=== PATIENT | female | born 1965 | race African-American/Black ===

== ENCOUNTER 2016-05-20 12:55 | Emergency (ER) | payer SELFPAY ==
[~2016-05-20] VITALS: Ht 170.2 cm; Wt 77.0 kg
[~2016-05-20 12:55] MED LIST: B-COTAB41 PO; CLON.2 PO; GABA800T PO; HCTZ25 PO; KCL10 PO; MAGN400C2 PO; MEDR4PAK3 PO; METH5SOL3 PO; OXYC15TA PO; PRIL40CA PO; PROZ40CA PO; TIZA4 PO; VITA200017 PO; VITA500C PO; [UNRECOGNIZED DRUG - CODE]
[2016-05-20 12:56] VITALS: BP 189/99; PULSE 74; RESP 20; TEMP 98.1; O2SAT 98
--- NOTE | 2016-05-20 13:03 | PD ---
Physical Exam Date Seen by Provider: May 20, 2016 Time Seen by Provider: 13:00 Narrative 50 YOBF WITH C/O CP . H/O CHEST INJURY 2DAYS AGO. POS PAIN WITH MOVEMENT AND DEEP BREATH. PAIN 11/26. H/O HTN. NO DM. NO BLOOD THINNERS VS MILD INCREASE BP HR NL. AWAITING BED PLACEMENT. Data Data Last Documented VS Vital Signs Date Time Temp Pulse Resp B/P Pulse Ox O2 Delivery O2 Flow Rate FiO2 05/20/16 12:56 98.1 74 20 189/99 98 Room Air [facility] Medical Record Reviewed: Yes Supervised Visit with JAYDEN: Yes José Luis Duarte May 20, 2016 13:03
--- NOTE | 2016-05-21 10:42 | EKG ---
Date Performed: 05/20/2016 Time Performed: 13:09:46 PTAGE: 50 years EKG: Sinus rhythm NORMAL ECG Compared to prior tracing no significant change PREVIOUS TRACING : 03/21/2010 22.05 DOCTOR: Farhana Callaway Interpretating Date/Time 05/21/2016 10:35:33
== END 2016-05-20 16:18 | disposition left against medical advice (07) ==
LOC: NED 12:55
DX: S29.9XXA Unspecified injury of thorax, initial encounter (principal); Z53.21 Procedure and treatment not carried out due to patient leaving prior to being seen by health care provider; X58.XXXA Exposure to other specified factors, initial encounter; I10 Essential (primary) hypertension
CPT/HCPCS: 93005

== ENCOUNTER 2016-10-03 20:10 | Observation (INO) | payer OTHER ==
[~2016-10-03] VITALS: Ht 170.2 cm; Wt 77.5 kg
[2016-10-03 20:14] VITALS: BP 203/111; PULSE 79; RESP 16; TEMP 98.2; O2SAT 99
--- NOTE | 2016-10-03 20:31 | PD ---
Physical Exam Date Seen by Provider: Oct 03, 2016 Time Seen by Provider: 20:28 Narrative 50 YOBF C/O CP SINCE FRIDAY TOOK ASA . NOW R FOOT WELL FRIDAY.H/O HTN ON MEDS. 11/26. OXY 30 3-4 TIMES A DAY LOGAN METHADONE 10 BID. H/O BACK PAIN VS REVIEWED WAITING FOR BED PLACEMENT Data Data Last Documented VS Vital Signs Date Time Temp Pulse Resp B/P Pulse Ox O2 Delivery O2 Flow Rate FiO2 10/03/16 20:14 98.2 79 16 203/111 99 Room Air MDM Supervised Visit with JAYDEN: José Luis Morgan Oct 03, 2016 20:31
--- NOTE | 2016-10-03 21:58 | PD ---
HPI Chief Complaint: Chest Pain Time Seen by Provider: 21:55 Travel History International Travel<30 days: No Contact w/Intl Traveler<30days: No Traveled to known affect area: No History of Present Illness HPI CP, SUBSTERNAL , PRESSURE, NONRAD, 08/26, INTERMITTENT, SINCE 10PM PFSH Past Medical History Arthritis: Yes (OSTEO AND RHEUMATOID) Asthma: Yes Blood Disorders: No Anxiety: Yes Heart Rhythm Problems: No Cancer: No Cardiac Catheterization: No Cardiovascular Problems: Yes (HTN, ) High Cholesterol: No Chemotherapy: No Congestive Heart Failure: No Diabetes: No Diminished Hearing: No Diverticulitis: Yes Endocrine: No Fibromyalgia: Yes Gastrointestinal Disorders: Yes (DIVERTICULITIS) Genitourinary: No Headaches: Yes Hypertension: Yes Immune Disorder: No Musculoskeletal: Yes (BULDGING DISK CHRONIC BACK PAIN) Neurologic: Yes Psychiatric: No Respiratory: Yes Immunizations Current: No Myocardial Infarction: No Radiation Therapy: No ?: Not Menopausal: Yes : 7 Para: 5 Miscarriage: 2 : 1 Ectopic : Yes Ovarian Cysts: Yes Tubal Ligation: Yes Past Surgical History Abdominal Surgery: Yes (FOR DIVERTICULITIS) Coronary Artery Bypass Graft: No Gynecologic Surgery: Yes Hysterectomy: Yes Other Surgery: Yes Family History Family Hypercholesterolemia: Yes Social History Alcohol Use: No Tobacco Use: Yes ( 2CIGS A DAY) Substance Use: Yes (MARIJUANA OCCASIONALLY) Allergies-Medications (Allergen,Severity, Reaction): Coded Allergies: acetaminophen (Unverified Allergy, Mild, 10/01/16) penicillin G (Unverified Allergy, Mild, swell,rash, 10/01/16) propoxyphene (Unverified Allergy, Mild, 10/01/16) strawberry (Unverified Allergy, Mild, swell,rash, 10/01/16) Reported Meds & Prescriptions Reported Meds & Active Scripts Active Reported Norvasc (Amlodipine Besylate) 10 Mg Tab 10 Mg PO DAILY Zanaflex (Tizanidine HCl) 4 Mg Cap 4 Mg PO TID Klor-Con 10 (Potassium Chloride) 10 Meq Tab 20 Meq PO DAILY Oxycodone (Oxycodone HCl) 15 Mg Tab 15 Mg PO Q4H PRN Omeprazole 40 Mg Cap 40 Mg PO DAILY Methadone (Methadone HCl) 10 Mg Tab 10 Mg PO DAILY Magnesium (Magnesium Oxide) 400 Mg Tablet 800 Mg PO TWICE WEEKLY [hydrodiuril] 25 Mg PO Gabapentin 800 Mg Tab 800 Mg PO TID Prozac (Fluoxetine HCl) 40 Mg Cap 40 Mg PO DAILY Clonidine (Clonidine HCl) 0.2 Mg Tab 0.2 Mg PO BID B Complex (B-Complex Vitamins) 1 Cap 1 Cap PO DAILY Review of Systems Except as stated in HPI: all other systems reviewed are Neg Cardiovascular: Positive: Chest Pain or Discomfort Physical Exam Narrative GENERAL: SKIN: Warm and dry. HEAD: Atraumatic. Normocephalic. EYES: Pupils equal and round. No scleral icterus. No injection or drainage. ENT: No nasal bleeding or discharge. Mucous membranes pink and moist. NECK: Trachea midline. No JVD. CARDIOVASCULAR: Regular rate and rhythm. RESPIRATORY: No accessory muscle use. Clear to auscultation. Breath sounds equal bilaterally. GASTROINTESTINAL: Abdomen soft, non-tender, nondistended. Hepatic and splenic margins not palpable. MUSCULOSKELETAL: Extremities without clubbing, cyanosis, or edema. No obvious deformities. NEUROLOGICAL: Awake and alert. No obvious cranial nerve deficits. Motor grossly within normal limits. Five out of 5 muscle strength in the arms and legs. Normal speech. PSYCHIATRIC: Appropriate mood and affect; insight and judgment normal. Data Data Last Documented VS Vital Signs Date Time Temp Pulse Resp B/P Pulse Ox O2 Delivery O2 Flow Rate FiO2 10/03/16 22:30 72 14 179/98 99 Room Air 10/03/16 20:14 98.2 Orders Electrocardiogram (10/03/16 20:31) Electrocardiogram (10/03/16 21:55) B-Type Natriuretic Peptide (10/03/16 21:55) Ckmb (Isoenzyme) Profile (10/03/16 21:55) Complete Blood Count With Diff (10/03/16 21:55) Comprehensive Metabolic Panel (10/03/16 21:55) Prothrombin Time / Inr (Pt) (10/03/16 21:55) Act Partial Throm Time (Ptt) (10/03/16 21:55) Troponin I (10/03/16 21:55) Lipase (10/03/16 21:55) Chest, Single Ap (10/03/16 21:55) Ecg Monitoring (10/03/16 21:55) Bilateral Bp Monitoring (10/03/16 21:55) Iv Access Insert/Monitor (10/03/16 21:55) Oximetry (10/03/16 21:55) Oxygen Administration (10/03/16 21:55) Aspirin Chew (Aspirin Chew) (10/03/16 22:00) Morphine Inj (Morphine Inj) (10/03/16 22:00) Nitroglycerin 2% Oint (Nitroglycerin 2% (10/03/16 22:00) Hydralazine Inj (Apresoline Inj) (10/03/16 22:15) CKMB (10/03/16 22:05) CKMB% (10/03/16 22:05) Admit Order (Ed Use Only) (10/03/16 23:16) Labs Laboratory Tests Test 10/03/16 22:05 White Blood Count 8.3 TH/MM3 Red Blood Count 4.20 MIL/MM3 Hemoglobin 13.1 GM/DL Hematocrit 38.7 % Mean Corpuscular Volume 92.1 FL Mean Corpuscular Hemoglobin 31.1 PG Mean Corpuscular Hemoglobin 33.8 % Concent Red Cell Distribution Width 14.1 % Platelet Count 337 TH/MM3 Mean Platelet Volume 8.6 FL Neutrophils (%) (Auto) 42.9 % Lymphocytes (%) (Auto) 50.8 % Monocytes (%) (Auto) 5.6 % Eosinophils (%) (Auto) 0.6 % Basophils (%) (Auto) 0.1 % Neutrophils # (Auto) 3.6 TH/MM3 Lymphocytes # (Auto) 4.2 TH/MM3 Monocytes # (Auto) 0.5 TH/MM3 Eosinophils # (Auto) 0.1 TH/MM3 Basophils # (Auto) 0.0 TH/MM3 CBC Comment DIFF FINAL Differential Comment Prothrombin Time 10.4 SEC Prothromb Time International 0.9 RATIO Ratio Activated Partial 26.8 SEC Thromboplast Time Sodium Level 141 MEQ/L Potassium Level 3.7 MEQ/L Chloride Level 105 MEQ/L Carbon Dioxide Level 27.4 MEQ/L Anion Gap 9 MEQ/L Blood Urea Nitrogen 11 MG/DL Creatinine 0.68 MG/DL Estimat Glomerular Filtration 111 ML/MIN Rate Random Glucose 92 MG/DL Calcium Level 9.2 MG/DL Total Bilirubin 0.2 MG/DL Aspartate Amino Transf 18 U/L (AST/SGOT) Alanine Aminotransferase 21 U/L (ALT/SGPT) Alkaline Phosphatase 71 U/L Total Creatine Kinase 111 U/L Creatine Kinase MB 1.1 NG/ML Troponin I LESS THAN 0.02 NG/ML B-Type Natriuretic Peptide 14 PG/ML Total Protein 8.2 GM/DL Albumin 4.1 GM/DL Lipase 98 U/L MDM Medical Decision Making Medical Screen Exam Complete: Yes Emergency Medical Condition: Yes Medical Record Reviewed: Yes Interpretation(s) NSR 63, NL INTERVALS, NO STEMI PATTERN Differential Diagnosis ID V NONSTEMI V PNA V PTX V ELECTROLYTE ABNL V ANEMIA V DEHYDRATION Narrative Course DURING EVALUATION PATIENT DID NOT HAVE ANEMIA, DEHYDRATION NOR ANY MAJOR ELECTROLYTE ABNL. EKG DID NOT REVEAL STEMI, AND CXR DID NOT SHOW ANY PNA/PTX/ EFFUSION Diagnosis Primary Impression: CP R/O ID Admitting Information Admitting Physician Requests: Chace Howell MD Oct 03, 2016 21:58
[2016-10-03] MEDS ORDERED: MORPHINE SULFATE 4 MG/ML INJ IV PUSH ONE (22:00)
[2016-10-03] MEDS ORDERED: ASPIRIN 81 MG CHEW TAB PO ONE (22:00)
[2016-10-03] MEDS ORDERED: NITROGLYCERIN 2% OINT 1 GM PACKET TOP ONE (22:00)
[2016-10-03] MEDS ORDERED: hydrALAZINE HCL 20 MG/ML VIAL IV PUSH ONE (22:15)
[2016-10-03 22:30] VITALS: BP 179/98; PULSE 72; RESP 14; O2SAT 99
[2016-10-03 22:44] LABS: AUTOMATED NEUTROPHIL # 3.6 TH/MM3 (1.8-7.7); BASOPHIL % 0.1 % (0.0-2.0); EOSINOPHIL # 0.1 TH/MM3 (0-0.4); EOSINOPHIL % 0.6 % (0.0-4.0); HEMATOCRIT 38.7 % (35.0-46.0); HEMO FLAGS DIFF FINAL; LYMPH % 50.8 % (9.0-44.0); LYMPHOCYTE # 4.2 TH/MM3 (1.0-4.8); MEAN CELL VOLUME 92.1 FL (80.0-100.0); MEAN CORPUSCULAR HEMOGLOBIN 31.1 PG (27.0-34.0); MEAN CORPUSCULAR HGB CONC 33.8 % (32.0-36.0); MONO % 5.6 % (0.0-8.0); NEUT % 42.9 % (16.0-70.0); PLATELET COUNT 337 TH/MM3 (150-450); RED CELL DISTRIBUTION WIDTH 14.1 % (11.6-17.2); WHITE BLOOD COUNT 8.3 TH/MM3 (4.0-11.0)
--- NOTE | 2016-10-03 22:45 | RADRPT ---
EXAM DATE/TIME: 10/03/2016 22:11 [facility] COMPARISON: No previous studies available for comparison. INDICATIONS : Chest pain for 4 days. MEDICAL HISTORY : Hypertension. SURGICAL HISTORY : None. ENCOUNTER: Initial ACUITY: 4 - 6 days PAIN SCORE: 5/10 LOCATION: Left upper chest FINDINGS: A single view of the chest demonstrates the lungs to be symmetrically aerated without evidence of mas s, infiltrate or effusion. The cardiomediastinal contours are unremarkable. Osseous structures are intact. CONCLUSION: No acute disease. José Luis Buck MD on October 03, 2016 at 22:43 Board Certified Radiologist. This report was verified electronically.
[2016-10-03 22:52] LABS: APTT (PATIENT) 26.8 SEC (24.3-30.1); INTERNATIONAL NORMALIZED RATIO 0.9 RATIO; PROTHROMBIN TIME - PATIENT 10.4 SEC (9.8-11.6)
[2016-10-03 23:00] LABS: ALT (GPT) 21 U/L (10-53); ANION GAP 9 MEQ/L (5-15); AST (GOT) 18 U/L (15-37); BICARBONATE 27.4 MEQ/L (21.0-32.0); BLOOD UREA NITROGEN 11 MG/DL (7-18); CHLORIDE 105 MEQ/L (98-107); GLOMERULAR FILTRATION RATE 111 ML/MIN (>89); SODIUM (NA) 141 MEQ/L (136-145)
[2016-10-03 23:03] LABS: POTASSIUM 3.7 MEQ/L (3.5-5.1)
[2016-10-03 23:10] LABS: ALKALINE PHOSPHATASE 71 U/L (45-117); CREATINE KINASE 111 U/L (26-192); TOTAL BILIRUBIN ADULT 0.2 MG/DL (0.2-1.0)
[2016-10-03] MEDS ORDERED: SODIUM CHLOR 0.9% 1000 ML INJ 1,000 ML IV SCH (23:17)
[2016-10-03 23:22] LABS: CKMB 1.1 NG/ML (0.5-3.6)
[2016-10-03] MEDS ORDERED: NITROGLYCERIN 0.4 MG SL 25 TABS/BTL SL PRN (23:30)
[2016-10-03] MEDS ORDERED: MORPHINE SULFATE 4 MG/ML INJ IV PRN (23:30)
[2016-10-03] MEDS ORDERED: ONDANSETRON HCL 4 MG/2 ML VIAL IV PRN (23:30)
[2016-10-03] MEDS ORDERED: ENOXAPARIN SODIUM 30 MG/0.3 ML SYRINGE SQ SCH (23:30)
[2016-10-03] MEDS ORDERED: METH10TA PO (23:58)
[2016-10-03] MEDS ORDERED: ZANA4CAP PO (23:58)
[2016-10-03] MEDS ORDERED: OMEP40CA2 PO (23:58)
[2016-10-03] MEDS ORDERED: PROZ40CA PO (23:58)
[2016-10-03] MEDS ORDERED: POTA-243 PO (23:58)
[2016-10-03] MEDS ORDERED: CLON0.2T PO (23:58)
[2016-10-03] MEDS ORDERED: hydrodiuril PO (23:58)
[2016-10-03] MEDS ORDERED: GABA800T PO (23:58)
[2016-10-03] MEDS ORDERED: MAGN400T24 PO (23:58)
[2016-10-03] MEDS ORDERED: VITACAP7 PO (23:58)
[2016-10-03] MEDS ORDERED: OXYC15TA PO (23:58)
[2016-10-03 23:59] VITALS: BP 164/73; PULSE 60; RESP 14; O2SAT 98
[2016-10-03] MEDS ORDERED: AMLO10 PO (23:59)
[2016-10-04] VITALS (7 sets, daily range): BP systolic 126–186; BP diastolic 77–99; PULSE 55–62; RESP 17–18; TEMP 96.8–98.3; O2SAT 95–99
[2016-10-04] MEDS ORDERED: hydrALAZINE HCL 20 MG/ML VIAL IV PUSH ONE (01:00)
[2016-10-04 01:37] LABS: CREATINE KINASE 80 U/L (26-192)
[2016-10-04 04:39] LABS: CREATINE KINASE 78 U/L (26-192)
[2016-10-04] MEDS ORDERED: ASPIRIN 325 MG TAB PO SCH (09:00)
--- NOTE | 2016-10-04 09:19 | RADRPT ---
EXAM DATE/TIME: 10/04/2016 08:43 [facility] COMPARISON: No previous studies available for comparison. INDICATIONS : Pain entire right foot, denies injury, leg cramps, chest pain MEDICAL HISTORY : None. SURGICAL HISTORY : None. ENCOUNTER: Subsequent ACUITY: 3 days PAIN SCORE: 8/10 LOCATION: Right foot FINDINGS: Three view examination of the right foot demonstrates no soft tissue swelling, dislocation, or fractu re. The tarsal bones appear intact. The interphalangeal and metatarsophalangeal joints are intact. The calcaneus is intact. Bony mineralization is normal. CONCLUSION: Unremarkable exam. Gonzalo Kirby MD on October 04, 2016 at 9:14 Board Certified Radiologist. This report was verified electronically.
[2016-10-04] MEDS ORDERED: OXYC30TA PO (09:38)
[2016-10-04] MEDS ORDERED: LISI10TA3 PO (09:40)
--- NOTE | 2016-10-04 09:40 | HHI.HP ---
HPI Primary Care Physician No Primary Care Physician Chief Complaint Foot pain History of Present Illness This is a 50-year-old female that presents to ED with a complaint of foot pain. She states that her right foot has been bothering her for a little days. Denies trauma. She states that she came to the ED for that and at some time was asked if she had chest pain as she states that she has had chest pain. States "next thing I knew I was admitted but no one has checked out my foot." Her chest discomfort is been constant for 4 days. Left side of the chest. Sharp in nature. Denies shortness breath, nausea, or diaphoresis. Review of Systems General: Patient denies fevers, chills recent, and recent travel HEENT: Patient denies headache, sore throat, difficulty swallowing. Cardiovascular: Has the chest discomfort as mentioned above. Denies sensation of heart beating rapidly or irregularly. No syncope. Denies diaphoresis. Respiratory: Denies shortness of breath or inspirational chest discomfort. Denies coughing wheezing or hemoptysis. GI: Patient denies nausea, vomiting, diarrhea, abdominal pain, bloody stools. Musculoskeletal: Complains of pain in her right foot. Denies trauma. Denies calf pain or edema. Neurovascular: Patient denies numbness, tingling, weakness in extremities. Denies headache. Endocrine: Denies polyuria and polydipsia. Hematologic: Denies easy bruising. Skin: Denies rash or itching. Past Family Social History Allergies: Coded Allergies: acetaminophen (Unverified Allergy, Mild, 10/01/16) penicillin G (Unverified Allergy, Mild, swell,rash, 10/01/16) propoxyphene (Unverified Allergy, Mild, 10/01/16) strawberry (Unverified Allergy, Mild, swell,rash, 10/01/16) Past Medical History Hypertension, rheumatoid arthritis, chronic pain syndrome. GERD. Denies diabetes, hyperlipidemia, and CAD. Past Surgical History Noncontributory. Reported Medications Reported Meds & Active Scripts Active Reported Norvasc (Amlodipine Besylate) 10 Mg Tab 10 Mg PO DAILY Zanaflex (Tizanidine HCl) 4 Mg Cap 4 Mg PO TID Klor-Con 10 (Potassium Chloride) 10 Meq Tab 20 Meq PO DAILY Oxycodone (Oxycodone HCl) 15 Mg Tab 15 Mg PO Q4H PRN Omeprazole 40 Mg Cap 40 Mg PO DAILY Methadone (Methadone HCl) 10 Mg Tab 10 Mg PO DAILY Magnesium (Magnesium Oxide) 400 Mg Tablet 800 Mg PO TWICE WEEKLY [hydrodiuril] 25 Mg PO Gabapentin 800 Mg Tab 800 Mg PO TID Prozac (Fluoxetine HCl) 40 Mg Cap 40 Mg PO DAILY Clonidine (Clonidine HCl) 0.2 Mg Tab 0.2 Mg PO BID B Complex (B-Complex Vitamins) 1 Cap 1 Cap PO DAILY Active Ordered Medications Current Medications Medications (Trade) Dose Ordered Sig/Franky Route Start Time Stop Time Status Last Admin (NS 1000 ml Inj) 1,000 ml @ 100 mls/hr Q10H IV 10/03/16 23:17 10/03/16 23:35 (Morphine Inj) 2 mg Q4H PRN IV 10/03/16 23:30 10/04/16 01:48 (Zofran Inj) 4 mg Q6H PRN IV 10/03/16 23:30 (Nitrostat Sl) 0.4 mg Q5M PRN SL 10/03/16 23:30 (Aspirin) 325 mg DAILY PO 10/04/16 09:00 10/04/16 07:45 (Lovenox Inj) 30 mg Q24H SQ 10/03/16 23:30 10/03/16 23:36 Family History Denies family history of CAD. Social History Smokes a couple cigarettes a day. Occasional marijuana. Denies alcohol use. Physical Exam Vital Signs Vital Signs Date Time Temp Pulse Resp B/P Pulse Ox O2 Delivery O2 Flow Rate FiO2 10/04/16 08:18 98 21 10/04/16 07:53 96.8 60 18 156/87 96 10/04/16 04:04 98.2 60 17 155/96 95 10/04/16 01:10 98.3 57 18 167/91 97 126/77 10/04/16 01:01 99 21 10/03/16 23:59 60 14 164/73 98 Room Air 10/03/16 22:30 72 14 179/98 99 Room Air 10/03/16 21:58 89 18 96 Room Air 10/03/16 20:14 98.2 79 16 203/111 99 Room Air Physical Exam GENERAL: This is a well-nourished, well-developed patient, in no apparent distress. Patient speaks in clear complete sentences. Patient is pleasant. HEENT: Head is atraumatic and normocephalic. Neck is supple without lymphadenopathy and trachea is midline. No JVD or carotid bruits. CARDIOVASCULAR: Regular rate and rhythm without murmurs, gallops, or rubs. RESPIRATORY: Clear to auscultation. Breath sounds equal bilaterally. No wheezes , rales, or rhonchi. Chest wall is nontender. No use of accessory muscles. GASTROINTESTINAL: Abdomen is nontender, nondistended. Abdomen soft. No obvious pulsatile mass or bruit. No CVA tenderness. Strong femoral pulses bilaterally. Normal bowel sounds in all quadrants. MUSCULOSKELETAL: Discomfort along the lateral aspect of the right foot. No edema. No ecchymosis. Strong dorsalis pedis pulses. Patient is moving upper and lower extremities freely. No calf tenderness or edema, no Homans sign. Strong pulses in upper and lower extremities. NEUROLOGICAL: Patient is alert and oriented. Cranial nerves 2-12 are grossly intact. No focal deficits and speech is clear. SKIN: No rash and turgor is normal. Laboratory Laboratory Tests Test 10/03/16 10/04/16 10/04/16 22:05 00:44 03:54 White Blood Count 8.3 Red Blood Count 4.20 Hemoglobin 13.1 Hematocrit 38.7 Mean Corpuscular Volume 92.1 Mean Corpuscular Hemoglobin 31.1 Mean Corpuscular Hemoglobin 33.8 Concent Red Cell Distribution Width 14.1 Platelet Count 337 Mean Platelet Volume 8.6 Neutrophils (%) (Auto) 42.9 Lymphocytes (%) (Auto) 50.8 Monocytes (%) (Auto) 5.6 Eosinophils (%) (Auto) 0.6 Basophils (%) (Auto) 0.1 Neutrophils # (Auto) 3.6 Lymphocytes # (Auto) 4.2 Monocytes # (Auto) 0.5 Eosinophils # (Auto) 0.1 Basophils # (Auto) 0.0 CBC Comment DIFF FINAL Differential Comment Prothrombin Time 10.4 Prothromb Time International 0.9 Ratio Activated Partial 26.8 Thromboplast Time Sodium Level 141 Potassium Level 3.7 Chloride Level 105 Carbon Dioxide Level 27.4 Anion Gap 9 Blood Urea Nitrogen 11 Creatinine 0.68 Estimat Glomerular Filtration 111 Rate Random Glucose 92 Calcium Level 9.2 Total Bilirubin 0.2 Aspartate Amino Transf 18 (AST/SGOT) Alanine Aminotransferase 21 (ALT/SGPT) Alkaline Phosphatase 71 Total Creatine Kinase 111 80 78 Creatine Kinase MB 1.1 Troponin I LESS THAN 0.02 LESS THAN 0.02 LESS THAN 0.02 B-Type Natriuretic Peptide 14 Total Protein 8.2 Albumin 4.1 Lipase 98 Result Diagram: 10/03/16220410/03/162204 Imaging Last 24 hours Impressions Foot X-Ray 10/04/16 0000 Signed Impressions: Service Date/Time: Tuesday, October 04, 2016 08:43 - CONCLUSION: Unremarkable exam. Gonzalo Kirby MD Chest X-Ray 10/03/162154 Signed Impressions: Service Date/Time: September 22:11 - CONCLUSION: No acute disease. José Luis Buck MD Course EKGs have sinus rhythm without significant ST segment depressions or elevations. Assessment and Plan Assessment and Plan * Foot pain: X-rays were obtained and the chest pain center and are negative. She should use ice and elevation and anti-inflammatories. * Atypical chest pain: Patient had serial cardiac enzymes and EKGs for ruling out purposes. She was seen by Dr. Tena of cardiology in the chest pain center and will be discharged home at this time. She is a follow-up with PCP. * Attention: Continue current medication. * Tobacco abuse: Patient been counseled on the importance of smoking cessation. Patient is stable at this time. She is agreeable to this plan. Aron Gandara Oct 04, 2016 09:40
--- NOTE | 2016-10-04 09:41 | HHI.DCPOC ---
Discharge Care Plan Diagnosis: (1) Foot pain (2) Chest pain, atypical (3) HTN (hypertension) (4) Tobacco abuse Goals to Promote Your Health * To prevent worsening of your condition and complications * To maintain your health at the optimal level Directions to Meet Your Goals Take your medications as prescribed Follow your dietary instruction Follow activity as directed Keep your appointments as scheduled Take your immunizations and boosters as scheduled If your symptoms worsen call your PCP, if no PCP go to Urgent Care Center or Emergency Room Smoking is Dangerous to Your Health. Avoid second hand smoke Call the 24-hour hour crisis hotline for domestic abuse at Aron Gandara Oct 04, 2016 09:41
[2016-10-04] MEDS ORDERED: cloNIDine HCL 0.2 MG TAB PO PRN (10:00)
[2016-10-04] MEDS ORDERED: HYDR25TA5 PO (11:19)
[2016-10-04] MEDS ORDERED: PANTOPRAZOLE SOD 40 MG DELAYED RELEASE TAB PO SCH (12:00)
[2016-10-04] MEDS ORDERED: LISINOPRIL 10 MG TAB PO SCH (12:00)
[2016-10-04] MEDS ORDERED: VITAMIN B COMPLEX/VIT C TAB PO SCH (12:00)
[2016-10-04] MEDS ORDERED: GABAPENTIN 400 MG CAP PO SCH (13:00)
--- NOTE | 2016-10-04 13:57 | EKG ---
Date Performed: 10/03/2016 Time Performed: 20:42:01 PTAGE: 50 years EKG: Sinus rhythm NORMAL ECG PREVIOUS TRACING : 05/20/2016 13.09 Since previous tracing, no significant change noted DOCTOR: Tashi Tena Interpretating Date/Time 10/04/2016 13:56:07
--- NOTE | 2016-10-04 13:58 | EKG ---
Date Performed: 10/04/2016 Time Performed: 00:55:33 PTAGE: 50 years EKG: SINUS BRADYCARDIA BORDERLINE ECG PREVIOUS TRACING : 10/03/2016 20.42 Since previous tracing, no significant change noted DOCTOR: Tashi Tena Interpretating Date/Time 10/04/2016 13:56:57
--- NOTE | 2016-10-04 13:59 | EKG ---
Date Performed: 10/04/2016 Time Performed: 04:14:32 PTAGE: 50 years EKG: SINUS BRADYCARDIA MODERATE VOLTAGE CRITERIA FOR LVH, CONSIDER NORMAL VARIANT BORDERLINE ECG PREVIOUS TRACING : 10/04/2016 00.55 Since previous tracing, no significant change noted DOCTOR: Tashi Tena Interpretating Date/Time 10/04/2016 13:57:13
[2016-10-05] MEDS ORDERED: POTASSIUM CHLORIDE 20 MEQ CONTROLLED RELEASE TAB PO SCH (09:00)
[2016-10-05] MEDS ORDERED: FLUoxetine HCL 20 MG CAP PO SCH (09:00)
[2016-10-05] MEDS ORDERED: HYDROCHLOROTHIAZIDE 25 MG TAB PO SCH (09:00)
[2016-12-04] MEDS ORDERED: INDO50CA PO (09:33)
[2016-12-04] MEDS ORDERED: PROZ40CA PO (09:35)
== END 2016-10-04 12:12 | disposition home or self-care (01) ==
LOC: NEPE 20:10 → NEDA 23:18 → NEPFCDU 10-04 01:08
DX: R07.89 Other chest pain (principal); M79.671 Pain in right foot; I10 Essential (primary) hypertension; F17.210 Nicotine dependence, cigarettes, uncomplicated; F12.90 Cannabis use, unspecified, uncomplicated; K21.9 Gastro-esophageal reflux disease without esophagitis; M06.9 Rheumatoid arthritis, unspecified; J45.909 Unspecified asthma, uncomplicated; M79.7 Fibromyalgia; F41.9 Anxiety disorder, unspecified; Z79.899 Other long term (current) drug therapy
CPT/HCPCS: 71010; 73630; 80053; 82550; 82552; 83690; 83880; 84484; 85025; 85610; 85730; 93005; 96361; 96372; 96374; 96375; 96376; 99285; G0378; J0360; J1650; J2270; J7030

== ENCOUNTER 2016-11-16 11:54 | Emergency (ER) | payer OTHER ==
[~2016-11-16] VITALS: Ht 170.2 cm; Wt 80.0 kg
[~2016-11-16 11:54] MED LIST changes: +AMLO10 PO; -B-COTAB41 PO; -CLON.2 PO; +CLON0.2T PO; -HCTZ25 PO; +HYDR25TA5 PO; -KCL10 PO; +LISI10TA3 PO; -MAGN400C2 PO; +MAGN400T24 PO; -MEDR4PAK3 PO; +METH10TA PO; -METH5SOL3 PO; +OMEP40CA2 PO; -OXYC15TA PO; +OXYC30TA PO; +POTA-243 PO; -PRIL40CA PO; -TIZA4 PO; -VITA200017 PO; -VITA500C PO; +VITACAP7 PO; +ZANA4CAP PO; -[UNRECOGNIZED DRUG - CODE]
[2016-11-16 11:56] VITALS: BP 211/114; PULSE 62; RESP 16; TEMP 98.3; O2SAT 98
[2016-11-16 12:00] VITALS: BP 218/111
--- NOTE | 2016-11-16 12:04 | PD ---
Physical Exam Date Seen by Provider: Nov 16, 2016 Time Seen by Provider: 12:02 Data Data Last Documented VS Vital Signs Date Time Temp Pulse Resp B/P (MAP) Pulse Ox O2 Delivery O2 Flow Rate FiO2 11/16/16 11:56 98.3 62 16 211/114 (146) 98 MDM Supervised Visit with JAYDEN: No Narrative Course 51-year-old female presents to the ED for evaluation of bilateral eye pain and tearing 30 minutes. Patient states that she was cleaning with a mixture of Reeder-Erika and Weeks's oil soap and thinks that she got the chemical in her eyes. She states that she treated with a few drops of Visine with no improvement of symptoms. Endorses blurred vision on presentation. Vitals reviewed. Patient's hypertensive, states that she took her lisinopril today. Has not taken clonidine today. Patient seen in triage, awaiting placement. Sophy Larson Nov 16, 2016 12:04
[2016-11-16 12:29] VITALS: BP 193/101; PULSE 55; RESP 20; O2SAT 97
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
[2016-11-16] MEDS ORDERED: ERYTOIN10 EACH EYE (13:30)
[2016-11-16] MEDS ORDERED: ERYTHROMYCIN 0.5% OPTH OINT 3.5 GM TUBO EACH EYE ONE (13:30)
[2016-11-16 13:56] VITALS: BP 178/97; PULSE 56; RESP 20; O2SAT 97
[2016-11-16] MEDS ORDERED: IBUPROFEN 800 MG TAB PO ONE (14:00)
[2016-12-04] MEDS ORDERED: INDO50CA PO (09:33)
[2016-12-04] MEDS ORDERED: PROZ40CA PO (09:35)
== END 2016-11-16 14:32 | disposition home or self-care (01) ==
LOC: NEPD 11:54
DX: T26.42XA Burn of left eye and adnexa, part unspecified, initial encounter (principal); T26.41XA Burn of right eye and adnexa, part unspecified, initial encounter; T65.891A Toxic effect of other specified substances, accidental (unintentional), initial encounter; M06.9 Rheumatoid arthritis, unspecified; I10 Essential (primary) hypertension; M79.7 Fibromyalgia; K57.92 Diverticulitis of intestine, part unspecified, without perforation or abscess without bleeding; J45.909 Unspecified asthma, uncomplicated; F41.9 Anxiety disorder, unspecified
CPT/HCPCS: 99283